=== PATIENT | male | born 1940 | race Caucasian/White ===

== ENCOUNTER 2019-03-18 09:12 | Day surgery (SDC) | payer MEDICARE, BC ==
[~2019-03-18] VITALS: Ht 190.7 cm; Wt 92.0 kg
[~2019-03-18 09:12] MED LIST: CORDARONE200 MG/TAB PO; COUMADIN 5MG5 MG/TAB PO; LOPRESSOR 225 MG/TAB PO; LUTEIN6 MG PO; MAG-OX 400400 MG/TAB PO; VITAMIN B COMPL1 SGL PO; VITAMIN C500 MG PO; VITAMIN D31000 I1 PO
[2019-03-18] MEDS ORDERED: FOLBEE PLUS1 TAB PO (09:38)
[2019-03-18 09:45] VITALS: BP 107/80; PULSE 76; TEMP 97.5
[2019-03-18] MEDS ORDERED: K-DUR20 MEQ PO (09:48)
[2019-03-18] MEDS ORDERED: LASIX 40MG TABL40 MG PO (09:48)
[2019-03-18] MEDS ORDERED: NATURAL E400 IU PO (09:50)
[2019-03-18] MEDS ORDERED: PACERONE200 MG PO (09:57)
--- NOTE | 2019-03-18 10:30 | NUR ---
Dr. Douglas in to see pt. Pt in SR, CV cancelled.
[2019-03-18 10:38] LABS: HEMOGLOBIN 10.7 g/dl (13.5-18.0); MEAN CELL VOLUME 94 fl (80.0-100.0); MEAN CORPUSCULAR HEMOGLOBIN 31 pg (27.0-31.0); MEAN CORPUSCULAR HGB CONC 32 g/dl (33.0-37.0); MEAN PLATELET VOLUME 8.5 fl (7.4-10.4); PLATELET COUNT 224 K/mm3 (130-400); REDCELL DISTRIBUTION WIDTH-CV 14.6 % (11.5-14.5)
[2019-03-18 10:49] LABS: INR 3.8 (0.8-3.0)
[2019-03-18 10:51] LABS: PARTIAL THROMBOPLASTIN TIME 47.2 SECONDS (26.0-37.0)
[2019-03-18 11:03] LABS: CREATININE, serum 1.43 (0.66-1.25); POTASSIUM 4.5 mmol/L (3.4-5.0)
--- NOTE | 2019-03-18 11:20 | NUR ---
Report to Keron Bell RN who assumed care at this time.
[2019-03-18 11:31] LABS: THYROID STIMULATING HORMONE 7.56 uIU/mL (0.465-4.680)
[2019-03-18 11:44] LABS: PROTHROMBIN TIME 46.7 SECONDS (9.7-12.8)
[2019-03-18 12:55] VITALS: BP 102/75; PULSE 74
--- NOTE | 2019-03-18 13:05 | NUR ---
Pt ready for discharge, he has spoken with Dr. Douglas and Nunu GONZALEZ regarding poc to f/u with his primary care physician within one week. Pt and verb understanding. Pt is awake and alert at time of departure. p,w,d. He is escorted out to exit via wheelchair.
== END 2019-03-18 13:10 | disposition home or self-care (01) ==
LOC: COL.CAR 09:12
PROVIDERS: Internal Medicine Cardiovascular Disease
DX: I48.91 Unspecified atrial fibrillation (principal); I08.0 Rheumatic disorders of both mitral and aortic valves; I25.10 Atherosclerotic heart disease of native coronary artery without angina pectoris; Z95.2 Presence of prosthetic heart valve; Z86.718 Personal history of other venous thrombosis and embolism; Z95.0 Presence of cardiac pacemaker; Z79.01 Long term (current) use of anticoagulants; Z53.8 Procedure and treatment not carried out for other reasons

== ENCOUNTER 2020-05-24 06:30 | Day surgery (SDC) | payer MEDICARE, BC ==
[~2020-05-24] VITALS: Ht 190.8 cm; Wt 100.4 kg
[~2020-05-24 06:30] MED LIST changes: +FOLBEE PLUS1 TAB PO; +K-DUR20 MEQ PO; +LASIX 20MG TABL20 MG PO; +NATURAL E400 IU PO; +PACERONE200 MG PO
[2020-05-24 07:55] LABS: POTASSIUM 4.2 mmol/L (3.4-5.0)
[2020-05-24] MEDS ORDERED: ASPIRIN 81M81 MG/TA2 PO (08:04)
[2020-05-24] MEDS ORDERED: VITAMIN B COMPL1 SGL PO (08:05)
[2020-05-24 08:13] VITALS: BP 122/93; PULSE 97; TEMP 98.1
[2020-05-24 08:21] LABS: INR 2.5 (0.8-3.0); PROTHROMBIN TIME 28.2 SECONDS (9.7-12.8)
[2020-05-24 08:28] LABS: THYROID STIMULATING HORMONE 39.2 uIU/mL (0.465-4.680)
[2020-05-24 09:21] VITALS: BP 97/69; PULSE 59
--- NOTE | 2020-05-24 09:21 | NUR ---
Report from Kristian Strauss.
[2020-05-24 09:30] VITALS: BP 96/71; PULSE 59
[2020-05-24 09:45] VITALS: BP 97/72; PULSE 62
[2020-05-24 10:00] VITALS: BP 91/83; PULSE 64
[2020-05-24 10:15] VITALS: BP 111/76; PULSE 59
--- NOTE | 2020-05-24 10:40 | NUR ---
Discharge instructions given to pt.Pt verbalizes understanding.INT removed,catheter tip intct.Pt escorted out via wheelchair by this nurse.
== END 2020-05-24 11:41 | disposition home or self-care (01) ==
LOC: COL.CAR 06:30
PROVIDERS: Internal Medicine Cardiovascular Disease
DX: I48.91 Unspecified atrial fibrillation (principal); I34.0 Nonrheumatic mitral (valve) insufficiency; I25.10 Atherosclerotic heart disease of native coronary artery without angina pectoris; Z95.0 Presence of cardiac pacemaker; Z86.718 Personal history of other venous thrombosis and embolism
CPT/HCPCS: J2704; J7030